=== PATIENT | female | born 1985 | race Caucasian/White ===

== ENCOUNTER 2016-05-26 01:59 | Emergency (ER) | payer SELFPAY ==
[~2016-05-26] VITALS: Ht 170.2 cm; Wt 99.8 kg
== END 2016-05-26 04:15 | disposition left against medical advice (07) ==
LOC: ER 01:59
DX: Z04.41 Encounter for examination and observation following alleged adult rape (principal); F17.210 Nicotine dependence, cigarettes, uncomplicated; Z88.0 Allergy status to penicillin; Z91.040 Latex allergy status; Z88.8 Allergy status to other drugs, medicaments and biological substances